=== PATIENT | female | born 1950 | race Caucasian/White ===

== ENCOUNTER → 2019-02-17 08:07 | Outpatient (CLI) | payer MEDICARE, OTHER, SELFPAY ==
--- NOTE | 2019-02-17 | DI.US.S_ITS ---
PROCEDURE: US ABDOMEN COMPLETE INDICATIONS: ELEVATED ALKALINE PHOSPHATE TECHNIQUE: Real-time scanning was performed of the abdominal and retroperitoneal organs, with image documentation. COMPARISON: None. FINDINGS: Liver: Liver is normal in size and homogeneous in echotexture. Gallbladder: Several nonobstructing kidney stones are seen. The gallbladder wall is not thickened, measuring 3 mm or less. No specific pericholecystic fluid is seen. The sonographic Teresa sign is negative. Biliary ducts: Intrahepatic bile ducts are non-dilated. Extrahepatic bile duct caliber measures 5 mm. Normal is 6-7 mm or less in diameter, or 10 mm or less post-cholecystectomy. Pancreas: Visualized portions of the pancreas are sonographically normal. Spleen: Spleen is normal in size and homogeneous in echotexture. Kidneys: Kidneys are normal in size and echotexture. Right kidney measures 11.7 cm long; left kidney measures 11.9 cm long. No hydronephrosis or nephrolithiasis. No solid masses. Aorta: Visualized aorta is normal in caliber at less than 3 cm. Iliacs: Proximal common iliac arteries are normal in caliber at less than 2.5 cm. IVC: Intrahepatic inferior vena cava is patent. Miscellaneous: No free abdominal fluid. IMPRESSION: Numerous gallstones are seen, without additional sonographic signs of cholecystitis. No biliary dilatation. Dictated by: Javed Salgado M.D. on 02/17/2019 at 8:34 Approved by: Javed Salgado M.D. on 02/17/2019 at 8:35
== END ==
PROVIDERS: PCP Internal Medicine; Visit Provider Internal Medicine
DX: R74.8 Abnormal levels of other serum enzymes (principal); K80.20 Calculus of gallbladder without cholecystitis without obstruction; N20.0 Calculus of kidney
CPT/HCPCS: 76700

== ENCOUNTER 2019-06-09 08:33 | Day surgery (SDC) | payer MEDICARE, OTHER, SELFPAY ==
--- NOTE | 2019-06-09 | PATH_ITS ---
[facility] Accession Number: [id number] . 01 Material submitted: . PART A: colon - COLON POLYP AT 50 CM PART B: cecum - CECAL POLYP PART C: hepatic flexure - HEPATIC FLEXURE COLON POLYP BIOPSY PART D: colon - COLON POLYP AT 45 CM PART E: colon - COLON POLYP BIOPSY NEAR ANUS PART F: colon - COLON POLYP BIOPSY AT 80 CM . 02 Diagnosis: A. Colon Polyp at 50 cm, Biopsy: Tubular adenoma. . B. Cecal Polyp, Biopsy: Tubular adenoma. . C. Hepatic Flexure Polyp, Biopsy: Tubular adenoma. . D. Colon Polyp at 45 cm, Biopsy: Tubular adenoma. . E. Colon Polyp, Near Anus, Biopsy: Hyperplastic polyp. . F. Colon Polyp at 80 cm, Biopsy: Tubular adenoma. [facility] 06/10/2019 1504 Local . 02 Electronically signed: . Armani Bowden MD, PhD, Pathologist NPI- [id number] . 01 Gross description: . Part A: COLON POLYP AT 50 CM: Received in formalin are 2 fragment(s) of ndiaye, soft tissue measuring 0.3 x 0.2 x 0.2 cm to 0.1 x 0.1 x 0.1 cm submitted entirely in 1 cassette(s) Part B: CECAL POLYP: Received in formalin are multiple fragment(s) of ndiaye, soft tissue measuring 0.6 x 0.6 x 0.2 cm in aggregate submitted entirely in 1 cassette(s) Part C: HEPATIC FLEXURE COLON POLYP BIOPSY: Received in formalin are 4 fragment(s) of ndiaye, soft tissue measuring 0.3 x 0.3 x 0.3 cm to 0.1 x 0.1 x 0.1 cm submitted entirely in 1 cassette(s) Part D: COLON POLYP AT 45 CM: Received in formalin are multiple fragment(s) of ndiaye, soft tissue measuring 1.0 x 0.7 x 0.2 cm in aggregate submitted entirely in 1 cassette(s) Part E: COLON POLYP BIOPSY NEAR ANUS: Received in formalin is 1 fragment(s) of ndiaye, soft tissue measuring 0.3 x 0.2 x 0.1 cm submitted entirely in 1 cassette(s) Part F: COLON POLYP BIOPSY AT 80 CM: Received in formalin are multiple fragment(s) of ndiaye, soft tissue measuring 1.2 x 0.8 x 0.2 cm in aggregate submitted entirely in 1 cassette(s) /QBJ 06/10/2019 0127 Local . 02 Pathologist provided ICD-10: D12.0, D12.6, K62.1 . 02 CPT . 586772, 750751, 328353, 699442, 614207, 744905 Performed at: 01 [facility] [address] [place] [address], [place], [place] [id number] MD Jaguar Cain MD Phone: [phone] Performed at: 02 [facility] [address] [place], [place] [id number] MD Anjali Loo MD Phone: [phone]
[2019-06-09 08:57] VITALS: BP 127/69; PULSE 109; RESP 20; TEMP 36.4; O2SAT 98; BMI 21.2
[2019-06-09] MEDS: SODIUM CHLORIDE 0.9% 1,000 ML 200 ML IV (09:24)
[2019-06-09] MEDS: fentaNYL 250 MCG/5 ML INJ IV (09:33)
[2019-06-09] MEDS: MIDAZOLAM 5 MG/5 ML VIAL IV (09:34)
--- NOTE | 2019-06-09 09:36 | PM.PREOP ---
Pre-operative Note Interval Note History & Physical reviewed/Exam performed by Physician: Yes Changes to H&P: No ASA Class (for procedural sedation): I
[2019-06-09] MEDS: ONDANSETRON 4 MG/2 ML INJ IV (10:00)
--- NOTE | 2019-06-09 10:38 | PM.OP.ENDO ---
Operative Date/Time/Diagnoses Date of procedure: 06/09/19 Time of procedure: 10:39 Pre-op diagnosis: Screening exam. Last exam 10 years ago. Patient believe she had a polyp removed in the past. Post-op diagnosis: same (Multiple polyps some of them large and fixed and worrisome for malignancy) Procedure & Clinicians Study performed: Colonoscopy with cold biopsy, hot snare polypectomy, and injection of Laura ink into 2 areas.(near but distal to the hepatic flexure and at approximately 50 cm from the anal verge) Same procedure as scheduled: Yes Indications: Screening Surgeon: Sacha Chauhan Procedure Notes SCOAP/Timeout: Performed Procedure in detail: The patient was placed in the left lateral decubitus position and underwent IV sedation directed by the surgeon consisting of fentanyl and Versed. Digital exam was unremarkable. The scope was inserted and advanced through the rectum into the sigmoid, descending, transverse, and ascending colon. In order to reach this level I had to reposition the patient, apply pressure and insert a stiffener. I encountered a small polyp near 50 cm which I biopsied and removed on the way in. This was specimen 1. Beyond this A large flat polyp occupying about 20% of the circular lumen was encountered in what appeared to be the descending colon and an additional series of polyps near the hepatic flexure 1 of which was quite large and flat as well. I went by these intending to biopsy them on the way out. The cecum was reached identified by the ileocecal valve and the appendiceal opening. There was a greater than 1 cm polyp at the edge of the cecum which I biopsied and snared. This was specimen 2. I then brought the scope out to the hepatic flexure. Because I suspect that the 2 large lesions are malignant I decided to remove some but not all of the polyps and take a generous biopsy of the larger lesion. These were all placed in specimen container 3. I then brought the scope beyond these and injected Laura ink. At about 45 cm there was a small polyp which I snared and removed. This was specimen number 4. Distal to this was the larger lesion. Because I had to go back and forth through this area my distance is varied. I saw a small polyp in the rectum which I snared and this became specimen 5. I reinserted the scope and Ultimately the largest lesion was labeled at 50 cm and was the 6th specimen container. I took multiple deep biopsies is I could not gain purchase on the lesion with a snare. It seemed to be fixed to the underlying tissue. The scope was gradually brought out. The scope ultimately was retroflexed in the rectum. The appearance was normal except for the previously described snare polypectomy site. The scope was removed and the patient tolerated the procedure well. The prep was excellent. Scope withdrawal time: Over 30 minutes total Sedation minutes: 58 Findings: polyp and possible cancer Specimen(s): other (Multiple biopsies and snared lesions.) Complications: none Post-procedure Plan for aftercare: Will schedule patient for a follow-up appointment in the office. If the lesion near the hepatic flexure is benign and the distal 1 malignant I would consider repeating her colonoscopy and remove all of the lesions in the proximal colon before proceeding with an operation. If everything is benign I would repeat her colonoscopy to treat all of the lesions. Follow up: weeks (One) Disposition: PACU
[2019-06-09 10:42] VITALS: BP 114/61; PULSE 81; RESP 12; TEMP 36.6; O2SAT 90
[2019-06-09 10:47] VITALS: BP 97/65; PULSE 84; RESP 16; O2SAT 91
--- NOTE | 2019-06-09 10:51 | SUR.PHASEI ---
IV site to right forearm noted to be infiltrated on arrival to PACU. Removed IV with catheter intact. Dressing applied and elevated right arm to pillow.
[2019-06-09 11:16] VITALS: BP 122/70; PULSE 85; RESP 16; O2SAT 94
[2019-06-09 11:22] VITALS: BP 94/57; PULSE 84; RESP 16; TEMP 36.6; O2SAT 90
[2019-06-09 11:45] VITALS: BP 111/75; PULSE 76; RESP 16; TEMP 36.6; O2SAT 96
--- NOTE | 2019-06-09 12:30 | SUR.PHASEII ---
Late entry: D/C instructions discussed with pt. Pt not wanting her grandson to hear the information. Pt assisted to BR, steady when up. Pt voided. Left when ready and left unit in stable condition.
--- NOTE | 2019-06-11 15:49 | PM.HP.1 ---
History of Present Illness History of Present Illness Date Patient Seen: 06/09/19 Time Patient Seen: 09:03 Chief complaint: [id number] SCREENING COLONOSCOPY Narrative: The patient is a woman who is here for colonoscopy for screening purposes. She actually had a adenomatous lesion treated in the past. She is overdue for a colonoscopy. Last exam was over 10 years ago. Patient History Family & Social History Social History: household members family Tobacco & Substance use: Tobacco type cigarettes Smoking Status Current every day smoker alcohol intake current alcohol intake frequency holiday/special occasion Substance Use Type does not use Meds Home Medications and Allergies Home Medications Medication Instructions Recorded Confirmed Type alendronate 70 mg PO QWEEK 06/09/19 06/09/19 History aspirin 81 mg PO DAILY 06/09/19 06/09/19 History atorvastatin 10 mg PO DAILY 06/09/19 06/09/19 History calcium carbonate [Calcium 500] 1,000 mg PO DAILY 06/09/19 06/09/19 History Allergies Allergy/AdvReac Type Severity Reaction Status Date / Time codeine AdvReac Nausea Verified 06/09/19 08:56 Review of Systems Review of Systems ROS: Yes All systems reviewed with the patient and are negative except as otherwise documented Exam Vital Signs (past 8 hours): Oxygen Delivery Method Room Air Narrative Exam Narrative: Pleasant cooperative patient no apparent distress. Lungs are clear to auscultation. No rales or rhonchi. Heart regular rate and rhythm no murmur gallop. Abdomen is soft nontender without mass. No obvious hernias. Patient is alert and oriented x3. Assessment & Plan Assessment & Plan narrative: The patient for a screening colonoscopy. I have discussed the procedure with them. Risks of bleeding, perforation which would necessitate major operation, failure to find remove all lesions, the potential tattoo were all discussed. All questions were answered. They wished to proceed.
== END 2019-06-09 11:45 | disposition home or self-care (01) ==
PROVIDERS: PCP Internal Medicine; Referring Provider Specialist; Visit Provider Specialist
PROC: 0DJD8ZZ Inspection of Lower Intestinal Tract, Via Natural or Artificial Opening Endoscopic (ICD-10-PCS; CPT 45378; principal; 2019-06-09 09:45)
DX: Z12.11 Encounter for screening for malignant neoplasm of colon (principal); D12.0 Benign neoplasm of cecum; D12.6 Benign neoplasm of colon, unspecified; K62.1 Rectal polyp
CPT/HCPCS: 45381; 45385; 45380; 99152; 99153; J2250; J2405; J3010

== ENCOUNTER → 2019-09-08 08:46 | Outpatient (CLI) | payer MEDICARE, OTHER, SELFPAY ==
[2019-09-08 10:48] LABS: Alanine Aminotransferase 27 IU/L (<35); Albumin 4.6 g/dL (3.5-5.0); Albumin Globulin Ratio 1.6 (1.0-2.8); Alkaline Phosphatase 83 U/L (38-126); Aspartate Aminotransferase 32 IU/L (14-36); Bilirubin Total 0.5 mg/dL (0.2-1.3); Bilirubin Unconjugated 0.4 mg/dL (0.0-1.1); Globulin 2.8 g/dL (1.7-4.1); HEMOLYSIS < 15 (0-50); Total Protein 7.4 g/dL (6.3-8.2)
== END ==
PROVIDERS: PCP Internal Medicine; Referring Provider Internal Medicine; Visit Provider Internal Medicine
DX: R74.8 Abnormal levels of other serum enzymes (principal)
CPT/HCPCS: 36415; 80076

== ENCOUNTER → 2020-03-07 15:14 | Outpatient (CLI) | payer MEDICARE, OTHER, SELFPAY ==
[2020-03-07 16:19] LABS: COVID19 -Nasal RAPID Negative (Negative)
== END ==
PROVIDERS: PCP Internal Medicine; Visit Provider Physician Assistant
DX: Z11.59 Encounter for screening for other viral diseases (principal)
CPT/HCPCS: 87635

== ENCOUNTER 2020-03-09 10:17 | Day surgery (SDC) | payer MEDICARE, OTHER, SELFPAY ==
--- NOTE | 2020-03-09 | PATH_ITS ---
[facility] Accession Number: [id number] . 01 Material submitted: . PART A: colon - ASCENDING COLON POLYPS PART B: colon - HEPATIC POLYP PART C: colon - PROXIMAL TRANSVERSE POLYPS PART D: colon - 40 CENTIMETER POLYP PART E: colon - 30 CENTIMETER POLYP PART F: body - UNKNOWN SITE . 01 Clinical history: . DX COLONOSCOPY . 02 Diagnosis: A. Ascending Colon, Polyps: Fragments of tubular adenoma. . B. Hepatic Flexure, Polyp: Tubular adenoma. . C. Proximal Transverse Colon, Polyps: Fragments of tubular adenoma. . D. Colon At 40 CM, Polyp: Tubular adenoma. . E. Colon At 30 CM, Polyp: Tubular adenoma. . F. Colon, Site Not Designated, Polyp: Tubular adenoma. [facility] 03/11/2020 1303 Local . 02 Electronically signed: . Armani Bowden MD, PhD, Pathologist NPI- [id number] . 01 Gross description: . A. Received in formalin and labeled with ascending colon polyps are three fragments of ndiaye soft tissue measuring 0.9 x 0.5 x 0.4 to 0.3 x 0.3 x 0.3 cm. All three fragments are entirely submitted in cassette A1. B. Received in formalin and labeled with hepatic polyp is one fragment of ndiaye soft tissue measuring 0.3 x 0.3 x 0.2 cm. The fragment is entirely submitted in cassette B1. C. Received in formalin and labeled with proximal transverse polyps are multiple fragments of ndiaye soft tissue ranging in size from 0.6 x 0.6 x 0.4 cm to smaller fragments ranging 0.7 x 0.7 x 0.4 cm in aggregate. All small fragments will be submitted in aggregate in cassette C1. All larger pieces are inked and bisected. Cassettes A2 and A3 contain four pieces each and cassette A4 contains two pieces. D. Received in formalin and labeled with 40 cm polyp is one fragment of ndiaye soft tissue measuring 0.4 x 0.3 x 0.3 cm. The fragment is entirely submitted in cassette D1. E. Received in formalin and labeled with 30 cm polyp are five pieces of ndiaye soft tissue measuring 0.7 x 0.6 x 0.5 to 0.3 x 0.2 x 0.1 cm. The largest piece is inked, trisected, and entirely submitted in cassette E1. The second and third pieces are inked, one blue and one green, and entirely submitted in cassette E2. Cassette E2 contains a total of four pieces. The fourth piece is inked, bisected, and entirely submitted in cassette E3. The fifth fragment is entirely submitted in cassette E3. Cassette E3 contains a total of three pieces. F. Received in formalin and labeled with unknown site is one fragment of ndiaye soft tissue measuring 0.5 x 0.5 x 0.3 cm. The fragment is entirely submitted in cassette F1. (BJ:[id number]) /MRV 03/10/2020 1001 Local . 02 Pathologist provided ICD-10: D12.2, D12.3, D12.6 . 02 CPT . 394892, 507989, 225664, 547396, 891231, 053142 Performed at: 01 [facility] [address] [id number] MD Jaguar Cain MD Phone: [phone] Performed at: 02 [facility] [address] [place] [id number] MD Anjali Loo MD Phone: [phone]
[2020-03-09 10:39] VITALS: BP 118/73; PULSE 94; RESP 16; TEMP 36.8; O2SAT 99; BMI 21.6
[2020-03-09] MEDS: SODIUM CHLORIDE 0.9% 1,000 ML 84 ML IV (10:52)
[2020-03-09] MEDS: MIDAZOLAM 5 MG/5 ML VIAL IV (12:15)
[2020-03-09] MEDS: fentaNYL 250 MCG/5 ML INJ IV (12:15)
--- NOTE | 2020-03-09 12:15 | PM.PREOP ---
Pre-operative Note COVID-19 COVID-19 status: Negative Interval Note History & Physical reviewed/Exam performed by Physician: Yes Changes to H&P: No ASA Class (for procedural sedation): II
--- NOTE | 2020-03-09 12:15 | PM.OP.ENDO ---
Operative Date/Time/Diagnoses Date of procedure: 03/09/20 Pre-op diagnosis: See indication and findings Procedure & Clinicians Study performed: Colonoscopy Same procedure as scheduled: Yes Indications: Known large colon polyps due for removal Surgeon: Kaye Watson Procedure Notes Procedure in detail: After informed consent was obtained the patient was placed in left lateral decubitus position. The video colonoscope was introduced the rectum and slowly advanced to the cecum. Preparation was good. On slow withdrawal mucosa was carefully examined. The scope was removed. The patient tolerated the procedure well. Blood loss none Complications none Sedation Total sedation time 61 minutes Versed 13 mg fentanyl 150 micro g IV titration Findings 1. 2 ascending colon polyps were found, one was 6 mm which was cold snared and removed and the other one, 8 mm which was hot snared removed. These were both retrieved 2. In the hepatic flexure was a 5 mm polyp in a difficult to reach position which was hot biopsied and removed completely 3. In the proximal transverse colon was the previously seen large colon polyps up with 2 additional satellite polyps 1 of which was 8 mm the other 10 mm. Both were injected with saline and then hot snared and removed. The larger polyp was somewhat multilobular not quite flat and at least 2.5 cm x 1 cm. This was injected in multiple locations with saline to raise it and then taken off in a piecemeal fashion with a hot snare. Removal was felt to be complete. All fragments were retrieved. The site of the larger polyp removal was just proximal to the previous tattoo. 4. At 40 cm was a 8 mm polyp which was hot snared and removed. 5. At 30 cm there was a rather large 3 x 2 cm polyp. This was taken off in a piecemeal fashion with a hot snare. There were apparent residual fragments of polyp around the perimeter this was treated with APC at a setting of 0.8 L and 30 w. It was felt that all areas were well treated. Previous tattoo was just distal to this polyp site. We will merely await pathology results. Unless there are are more advanced histologic characteristics I would expect she would need follow-up colonoscopy in 6-12 months. Given issues with sedation the should be done under anesthesia.
[2020-03-09] MEDS: MIDAZOLAM 2 MG/2 ML VIAL IV (12:17)
[2020-03-09 12:22] VITALS: BP 104/65; PULSE 84; RESP 19; TEMP 36.6; O2SAT 97
[2020-03-09 12:27] VITALS: BP 113/71; PULSE 87; RESP 13; O2SAT 96
[2020-03-09 12:31] VITALS: BP 116/65; PULSE 82; RESP 21; O2SAT 95
--- NOTE | 2020-03-09 12:35 | SUR.PHASEI ---
stable PACU stay
[2020-03-09 12:36] VITALS: BP 108/59; PULSE 84; RESP 22; TEMP 36.4; O2SAT 95
--- NOTE | 2020-03-09 12:37 | SUR.PHASEI ---
+flatus, soft belly non nausea, to OPD
--- NOTE | 2020-03-09 16:07 | SUR.PHASEII ---
1305-Pt dcd in stable condition via wc with no c/o
== END 2020-03-09 13:05 | disposition home or self-care (01) ==
PROVIDERS: PCP Internal Medicine; Referring Provider Internal Medicine Gastroenterology; Visit Provider Internal Medicine Gastroenterology
PROC: 0DJD8ZZ Inspection of Lower Intestinal Tract, Via Natural or Artificial Opening Endoscopic (ICD-10-PCS; CPT 45378; principal; 2020-03-09 11:30)
DX: Z12.11 Encounter for screening for malignant neoplasm of colon (principal); Z86.010 Personal history of colon polyps; D12.2 Benign neoplasm of ascending colon; D12.3 Benign neoplasm of transverse colon; D12.6 Benign neoplasm of colon, unspecified
CPT/HCPCS: 45390; 45385; 45380; J2250; J3010

== ENCOUNTER → 2020-03-14 19:46 | Outpatient (ROUT) | payer MEDICARE, OTHER, SELFPAY ==
[2020-03-14 20:13] LABS: Alanine Aminotransferase 25 IU/L (<35); Albumin 4.2 g/dL (3.5-5.0); Albumin Globulin Ratio 1.4 (1.0-2.8); Alkaline Phosphatase 79 U/L (38-126); Aspartate Aminotransferase 30 IU/L (14-36); BUN Creatinine Ratio 20.5 (6-22); Bilirubin Total 0.6 mg/dL (0.2-1.3); Blood Urea Nitrogen 15 mg/dL (7-17); Calcium 9.8 mg/dL (8.4-10.2); Carbon Dioxide 32 mmol/L (22-32); Chloride 105 mmol/L (98-107); Cholesterol 158 mg/dL (140-199); Estimated Glomerular Filt Rate > 60.0 mL/min (>60); Glucose 96 mg/dL (80-110); HDL Cholesterol 43 mg/dL (40-60); HEMOLYSIS < 15 (0-50); LDL Cholesterol Calculated 84 mg/dL (<100); Potassium 4.4 mmol/L (3.4-5.1); Sodium 141 mmol/L (137-145); Total Protein 7.2 g/dL (6.3-8.2); Triglycerides 157 mg/dL (35-150)
== END ==
PROVIDERS: PCP Internal Medicine; Visit Provider Internal Medicine
DX: K63.5 Polyp of colon (principal)
CPT/HCPCS: 80053; 80061

== ENCOUNTER → 2020-09-26 09:14 | Outpatient (CLI) | payer MEDICARE, OTHER, SELFPAY ==
[2020-09-26 12:11] LABS: COVID19 -Nasal RAPID Negative (Negative)
== END ==
PROVIDERS: PCP Internal Medicine; Referring Provider Physician Assistant; Visit Provider Physician Assistant
DX: Z01.812 Encounter for preprocedural laboratory examination (principal); Z20.822 Contact with and (suspected) exposure to COVID-19
CPT/HCPCS: 87635; C9803

== ENCOUNTER 2020-09-28 14:18 | Day surgery (SDC) | payer MEDICARE, OTHER, SELFPAY ==
--- NOTE | 2020-09-28 | PATH_ITS ---
[facility] Accession Number: [id number] . 01 Material submitted: . rectum - RECTAL POLYP . 02 Diagnosis: Rectum, Polyp, Biopsy: Tubular adenoma. [facility] 10/03/2020 1032 Local . 02 Electronically signed: . Anjali Loo MD, Pathologist NPI- [id number] . 01 Gross description: . The specimen is received in formalin, labeled rectum and consists of a 0.5 x 0.3 x 0.2 cm ndiaye-pink fragment of soft tissue, which is entirely submitted in cassette A1. (EA:[id number] [id number]) /MRV 09/30/2020 1340 Local . 02 Pathologist provided ICD-10: D12.8 . 02 CPT . 759026 Performed at: 01 [facility] [address] [id number] MD Jaguar Cain MD Phone: [phone] Performed at: 02 [facility] [address] [place] [id number] MD Anjali Loo MD Phone: [phone]
[2020-09-28 14:43] VITALS: BP 120/70; PULSE 80; RESP 16; TEMP 36.7; O2SAT 98; BMI 21.2
[2020-09-28] MEDS: LACTATED RINGERS 1,000 ML 42 ML IV (15:00)
--- NOTE | 2020-09-28 15:04 | PM.HP.1 ---
History of Present Illness History of Present Illness Date Patient Seen: 09/28/20 Chief complaint: SDC Narrative: Multiple and large colon polyp 6 months ago need for follow-up colonoscopy to ensure complete removal. Patient History Family & Social History Social History: household members family Tobacco & Substance use: Tobacco type cigarettes Smoking Status Current every day smoker alcohol intake current alcohol intake frequency holiday/special occasion Substance Use Type does not use Meds Home Medications and Allergies Home Medications Medication Instructions Recorded Confirmed Type alendronate 70 mg PO QWEEK 06/09/19 09/28/20 History aspirin 81 mg PO DAILY 06/09/19 09/28/20 History atorvastatin 10 mg PO DAILY 06/09/19 09/28/20 History calcium carbonate [Calcium 500] 1,000 mg PO DAILY 06/09/19 09/28/20 History Allergies Allergy/AdvReac Type Severity Reaction Status Date / Time codeine AdvReac Nausea Verified 09/28/20 14:57 Exam Vital Signs (past 8 hours): - 09/28/20 14:43 Temperature 98.0 F Pulse Rate 80 Respiratory Rate 16 Blood Pressure 120/70 Pulse Oximetry 98 Oxygen Delivery Method Room Air Narrative Exam Narrative: Oropharynx free of lesions Chest clear to auscultation percussion Cardiac exam reveals no S3 or murmur Assessment & Plan Assessment & Plan narrative: Large and multiple colon polyps need for follow-up colonoscopy to ensure complete removal at some sites into remove any further polyps. Risks, benefits, alternatives have been explained
--- NOTE | 2020-09-28 15:05 | PM.OP.ENDO ---
Operative Date/Time/Diagnoses Date of procedure: 09/28/20 Pre-op diagnosis: See indication and findings Procedure & Clinicians Study performed: Colonoscopy Same procedure as scheduled: Yes Indications: Multiple and large colon polyps 6 months ago Surgeon: Kaye Watson Procedure Notes Procedure in detail: After informed consent was obtained the patient was placed in left lateral decubitus position. Video colonoscope was introduced the rectum slowly advanced cecum. On slow withdrawal mucosa was carefully examined. The scope was removed. The patient tolerated procedure well. Blood loss none Complications none Sedation MAC Findings 1. tattoos at the sites of previously removed large polyps, 20 cm and 50 cm. No residual polyp seen 2. Some degree of left-sided diverticulosis 3. 6 mm polyp at the rectosigmoid junction cold snared removed completely 4. Otherwise negative colonoscopy to cecum Patient will need follow-up colonoscopy in 3-5 years. This will have to be done under anesthesia.
[2020-09-28 15:42] VITALS: BP 97/58; PULSE 84; RESP 15; TEMP 36.4; O2SAT 96
[2020-09-28 15:47] VITALS: BP 108/50; PULSE 82; RESP 13; O2SAT 96
[2020-09-28 15:52] VITALS: BP 122/70; PULSE 82; RESP 14; O2SAT 95
[2020-09-28 15:58] VITALS: BP 130/69; PULSE 81; RESP 20; TEMP 36.7; O2SAT 95
[2020-09-28 16:10] VITALS: BP 114/75; PULSE 79; RESP 12; TEMP 36.4; O2SAT 97
== END 2020-09-28 16:30 | disposition home or self-care (01) ==
PROVIDERS: PCP Internal Medicine; Referring Provider Internal Medicine Gastroenterology; Visit Provider Internal Medicine Gastroenterology
PROC: 0DJD8ZZ Inspection of Lower Intestinal Tract, Via Natural or Artificial Opening Endoscopic (ICD-10-PCS; CPT 45378; principal; 2020-09-28 15:15)
DX: D12.8 Benign neoplasm of rectum (principal); Z86.010 Personal history of colon polyps; F17.210 Nicotine dependence, cigarettes, uncomplicated; K57.30 Diverticulosis of large intestine without perforation or abscess without bleeding
CPT/HCPCS: 45385; J2704; J3010